=== PATIENT | female | born 1935 | race Caucasian/White ===

== ENCOUNTER → 2016-07-25 | Outpatient (CLI) | payer OTHER, MEDICARE | LOC: RAD 12:52 | DX: M47.892 Other spondylosis, cervical region (principal); M47.894 Other spondylosis, thoracic region ==

== ENCOUNTER 2018-01-18 11:17 | Emergency (ER) | payer OTHER, MEDICARE ==
[~2018-01-18] VITALS: Ht 152.4 cm; Wt 43.1 kg
--- NOTE | ~2018-01-18 | EKG ---
[address] [address] ELECTROCARDIOGRAM REPORT Name: VIV ARMANDO Room #: DEP IRENE Anderson#: [id number] Admission: 01/18/18 Attend Phys: Discharge: 01/18/18 Date of : 33 Report #: [id number] THIS REPORT FOR: //name// [facility] ED Test Date: 2018-01-18 Test Time: 13:32:42 Pat Name: VIV ARMANDO Department: Room: Gender: F [facility] Nurse: WG : 1935 Requested By: Razia Bucio Order Number: [id number] MD: Oren Guidry Measurements Intervals [place] Rate: 86 P: 79 [place]: 165 QRS: -1 QRSD: 73 T: 74 QT: 377 QTc: 451 Interpretive Statements Sinus rhythm Compared to ECG 09/11/1997 14:27:00 No significant changes Electronically Signed On 01-20-2018 20:24:24 ENTRY MANAGER by Oren Guidry [email or web address] <ELECTRONICALLY SIGNED> By: Oren Guidry MD 01/20/182023 1332 1332 MD RICKY Venegas
[2018-01-18 11:39] LABS: ABSOLUTE NEUTROPHILS 8.1 thou/uL (1.4-8.2); BASOPHILS 0.5 % (0.0-2.0); EOSINOPHILS 0.4 % (0.0-3.0); HEMATOCRIT 41.9 % (37.0-47.0); HEMOGLOBIN 13.8 gm/dL (12.0-15.0); LYMPHOCYTES 13.3 % (24.0-44.0); MCH 29.9 pg (26.0-34.0); MCHC 32.9 g/dL (28.0-37.0); MONOCYTES 7.6 % (1.0-8.0); PLATELET COUNT 225 thou/uL (150-400); POLYS 78.2 % (36.0-66.0); RBC 4.61 mil/uL (4.20-5.00); RDW 13.9 % (10.5-14.5); WBC 10.3 thou/uL (4.0-11.0)
[2018-01-18 11:47] LABS: ANION GAP 8 mmol/L (7-16); BUN 21 mg/dL (7-18); CHLORIDE 105 mmol/L (98-107); CO2 26 mmol/L (21-32); CREATININE 1.3 mg/dL (0.6-1.0); GLUCOSE 130 mg/dL (74-106); SODIUM 139 mmol/L (136-145)
[2018-01-18] MEDS ORDERED: NORVASC5 MG PO (11:47)
[2018-01-18 11:49] LABS: POTASSIUM 4.7 mmol/L (3.5-5.1)
[2018-01-18] MEDS ORDERED: LEXAPRO 10 MG T10 M2 PO (11:49)
[2018-01-18] MEDS ORDERED: ASPIR 8181 MG PO (11:49)
[2018-01-18] MEDS ORDERED: CALCIUM 600 +1 EAC1 PO (11:50)
[2018-01-18] MEDS ORDERED: FOSAMAX 70 MG T70 MG PO (11:50)
[2018-01-18] MEDS ORDERED: ALEVE PM CAPLE1 EACH PO (11:52)
[2018-01-18 11:56] LABS: ALBUMIN 4.1 g/dL (3.4-5.0); SGOT 27 U/L (15-37); SGPT 18 U/L (30-65); TOTAL BILIRUBIN 0.7 mg/dL (<0.1-1.0); TOTAL PROTEIN 7.4 g/dL (6.4-8.2); TROPONIN-I <0.06 ng/mL (<0.06)
[2018-01-18 13:24] LABS: URINE BILIRUBIN NEGATIVE (Negative); URINE BLOOD NEGATIVE (Negative); URINE CLARITY CLEAR; URINE COLOR YELLOW; URINE GLUCOSE-RANDOM* NEGATIVE (Negative); URINE KETONES NEGATIVE (Negative); URINE LEUKOCYTES-REFLEX NEGATIVE (Negative); URINE NITRITE-REFLEX NEGATIVE (Negative); URINE PROTEIN (DIPSTICK) NEGATIVE (Negative); URINE SPECIFIC GRAVITY 1.015 (1.005-1.035)
[2018-01-18 13:40] LABS: AMP/METHAMP Negative (Negative); BARBITURATES Negative (Negative); BENZODIAZEPINES Negative (Negative); COCAINE Negative (Negative); METHADONE Negative (Negative); OPIATES Negative (Negative); PCP Negative (Negative)
[2018-01-18 14:48] VITALS: BP 118/61
== END 2018-01-18 15:43 | disposition home or self-care (01) ==
LOC: ER 11:17
PROVIDERS: Student in an Organized Health Care Education/Training Program
DX: E86.0 Dehydration (principal); R11.0 Nausea; Z88.2 Allergy status to sulfonamides

== ENCOUNTER 2018-07-03 11:39 | Emergency (ER) | payer OTHER, MEDICARE ==
[~2018-07-03] VITALS: Ht 152.4 cm; Wt 45.8 kg
[~2018-07-03 11:39] MED LIST: ALEVE PM CAPLE1 EACH PO; AMOXICILLIN 50500 MG PO; ASPIR 8181 MG PO; CALCIUM 600 +1 EAC1 PO; FOSAMAX 70 MG T70 MG PO; LEXAPRO 10 MG T10 M2 PO; NORVASC5 MG PO; PREDNISONE 5 MG5 M1 PO
[2018-07-03 12:37] LABS: BASOPHILS 0.8 % (0.0-2.0); EOSINOPHILS 0.5 % (0.0-3.0); HEMOGLOBIN 12.3 gm/dL (12.0-15.0); LYMPHOCYTES 15.2 % (24.0-44.0); MCH 29.9 pg (26.0-34.0); MCHC 33.2 g/dL (28.0-37.0); MCV 90.1 fL (80.0-100.0); MONOCYTES 8.9 % (1.0-8.0); PLATELET COUNT 215 thou/uL (150-400); POLYS 74.6 % (36.0-66.0); WBC 9.4 thou/uL (4.0-11.0)
[2018-07-03 12:41] LABS: ANION GAP 9 mmol/L (7-16); BUN 23 mg/dL (7-18); CALCIUM 8.6 mg/dL (8.5-10.1); CHLORIDE 104 mmol/L (98-107); CO2 27 mmol/L (21-32); GLUCOSE 141 mg/dL (74-106); SODIUM 140 mmol/L (136-145)
[2018-07-03 12:51] LABS: DIRECT BILIRUBIN 0.1 mg/dL (<0.1-0.3); SGOT 18 U/L (15-37); SGPT 17 U/L (30-65); TOTAL BILIRUBIN 0.6 mg/dL (<0.1-1.0); TOTAL PROTEIN 6.5 g/dL (6.4-8.2); TROPONIN-I <0.06 ng/mL (<0.06)
[2018-07-03] MEDS ORDERED: XANAX 0.25 MG0.25 MG PO (13:47)
[2018-07-03 15:20] VITALS: BP 140/53
--- NOTE | 2018-07-04 16:08 | EKG ---
[address] [address] [facility] [place] [address] ELECTROCARDIOGRAM REPORT Name: VIV ARMANDO Room #: DEP IRENE Anderson#: [id number] ������������������ Admission: 07/03/18 ������������������ Attend Phys: Discharge: 07/03/18 ������������������ Date of : 33 Report #: [id number] ����������������������������������������������������������������� [id number] THIS REPORT FOR: //name// [facility] ED Test Date: 2018-07-03 Test Time: 13:00:23 Pat Name: VIV ARMANDO Department: Room: Gender: F Press Secretary: TSTORCK : 1935 Requested By: Nisreen Pedroza Order Number: [id number] MD: Alexis Alvarez Measurements Intervals [place] Rate: 68 P: 83 [place]: 147 QRS: 59 QRSD: 73 T: 75 QT: 417 QTc: 444 Interpretive Statements Sinus rhythm Compared to ECG 01/18/2018 13:32:42 No significant changes Electronically Signed On 07-04-2018 16:08:31 CDT by Alexis Alvarez [email or web address] ��������������������������������������������� <ELECTRONICALLY SIGNED> ���������������������������������������� By: Alexis Alvarez MD ��������������������������������������������� 07/04/18 1608 1300 1300 Alexis Alvarez MD /EPI
== END 2018-07-03 15:20 | disposition home or self-care (01) ==
LOC: ER 11:39
PROVIDERS: Emergency Medicine
DX: I95.1 Orthostatic hypotension (principal); Z88.2 Allergy status to sulfonamides

== ENCOUNTER 2019-03-20 10:00 | Emergency (ER) | payer OTHER, MEDICARE ==
[~2019-03-20] VITALS: Ht 157.5 cm; Wt 36.3 kg
--- NOTE | ~2019-03-20 | EKG ---
[facility] [place] [address] ELECTROCARDIOGRAM REPORT Name: VIV ARMANDO Room #: PRE M.R.#: [id number] Admission: Attend Phys: Discharge: Date of : 34 Report #: [id number] THIS REPORT FOR: cc: Dennis Sheikh MD, Thomas P. MD Epiphany, Epiphany MD ~ THIS REPORT FOR: //name// [facility] ED Test Date: 2019-03-20 Test Time: 10:04:43 Pat Name: VIV ARMANDO Department: Room: Gender: F Physics Tutor: ULI : 1935 Requested By: Bob Salazar Order Number: [id number] MD: Measurements Intervals [place] Rate: 82 P: 82 [place]: 142 QRS: 56 QRSD: 136 T: 65 QT: 397 QTc: 464 Interpretive Statements Sinus rhythm Nonspecific intraventricular conduction delay Anteroseptal infarct, age indeterminate Compared to ECG 07/03/2018 13:00:23 Intraventricular conduction delay now present Myocardial infarct finding now present [email or web address] By: 1004 1004 Epiphany EpiphanyMD /EPI
[~2019-03-20 10:00] MED LIST changes: +XANAX 0.25 MG0.25 MG PO
[2019-03-20 11:09] LABS: BASOPHILS 0.5 % (0.0-2.0); EOSINOPHILS 0.2 % (0.0-3.0); HEMATOCRIT 39.4 % (37.0-47.0); HEMOGLOBIN 12.8 gm/dL (12.0-15.0); LYMPHOCYTES 8.1 % (24.0-44.0); MCH 29.6 pg (26.0-34.0); MCHC 32.5 g/dL (28.0-37.0); MCV 91.3 fL (80.0-100.0); MONOCYTES 7.5 % (1.0-8.0); PLATELET COUNT 218 thou/uL (150-400); POLYS 83.7 % (36.0-66.0); RBC 4.32 mil/uL (4.20-5.00); RDW 14.3 % (10.5-14.5); WBC 10.8 thou/uL (4.0-11.0)
[2019-03-20 11:15] LABS: ANION GAP 9 mmol/L (7-16); BUN 24 mg/dL (7-18); CALCIUM 8.6 mg/dL (8.5-10.1); CHLORIDE 105 mmol/L (98-107); CO2 28 mmol/L (21-32); GLUCOSE 124 mg/dL (74-106); POTASSIUM 3.8 mmol/L (3.5-5.1); SODIUM 142 mmol/L (136-145)
[2019-03-20 11:25] LABS: ALBUMIN 4.1 g/dL (3.4-5.0); DIRECT BILIRUBIN 0.1 mg/dL (<0.1-0.2); SGOT 34 U/L (15-37); SGPT 33 U/L (30-65); TOTAL BILIRUBIN 0.6 mg/dL (<0.1-1.0); TOTAL PROTEIN 7.2 g/dL (6.4-8.2); TROPONIN-I <0.06 ng/mL (<0.06)
[2019-03-20 12:51] LABS: URINE BILIRUBIN NEGATIVE (Negative); URINE BLOOD TRACE (Negative); URINE CLARITY CLEAR; URINE COLOR YELLOW; URINE GLUCOSE-RANDOM* NEGATIVE (Negative); URINE KETONES TRACE (Negative); URINE LEUKOCYTES-REFLEX NEGATIVE (Negative); URINE NITRITE-REFLEX NEGATIVE (Negative); URINE PROTEIN (DIPSTICK) TRACE (Negative)
[2019-03-20 14:23] VITALS: BP 144/56
== END 2019-03-20 14:25 | disposition home or self-care (01) ==
LOC: ER 10:00
PROVIDERS: Emergency Medicine
DX: S50.02XA Contusion of left elbow, initial encounter (principal); S50.01XA Contusion of right elbow, initial encounter; R53.1 Weakness; R41.0 Disorientation, unspecified; Z88.2 Allergy status to sulfonamides; W18.39XA Other fall on same level, initial encounter; Y93.89 Activity, other specified; Y92.89 Other specified places as the place of occurrence of the external cause; Y99.8 Other external cause status

== ENCOUNTER 2019-03-29 12:38 | Inpatient (IN) | payer OTHER, MEDICARE ==
[~2019-03-29] VITALS: Ht 160 cm; Wt 45.4 kg
--- NOTE | ~2019-03-29 | HC ---
[facility] [place] [address] CONSULTATION Name: VIV ARMANDO Room #: 454-P [facility] IN M.R.#: [id number] Admission: 03/29/19 Attend Phys: Roshan Langley MD Discharge: Date of : 34 Report #: [id number] THIS REPORT FOR: cc: Dennis Sheikh MD, Thomas P. MD Smithson, David G. MD ~ CC: Roshan Bahijalyn Canseco Dennis Sheikh DATE OF SERVICE: 03/31/2019 HISTORY OF PRESENT ILLNESS: The patient is an 83-year-old white female who was admitted with increasing falls at home. Noted to have approximately 7 falls. She does have a history of some dementia and had been placed on Namenda as an outpatient as well as some Xanax to help with her anxiety. She does live in her own home, but over the last couple of weeks her daughter has been staying with her. She has been having worsening gait instability with balance and falls and has now been admitted for further evaluation. MRI did not show any acute infarct. She has a diagnosis of gait apraxia with recurrent falls with Neurology involved. They also note abasia. We are seeing her in rehabilitation medicine consultation. PAST MEDICAL HISTORY: Includes COPD. She has had prior back surgeries, history of hypertension. MEDICATIONS: Please see the full medication listing. HABITS: Noted to be tobacco user, current same day smoker. No history of alcohol abuse. ALLERGIES: SULFA. SOCIAL HISTORY: As noted above. She does have the house with 7+7 steps in, has a roller walker. REVIEW OF SYSTEMS: No current complaints of chest pain, shortness of breath or abdominal discomfort. PHYSICAL EXAMINATION: GENERAL: An 83-year-old small statured, thin, white female, in no obvious distress. VITAL SIGNS: Last recorded temperature 98.2, pulse 83, respirations 18, blood pressure 160/65. The patient is alert. HEENT: Appeared to be benign. NEUROLOGIC: Cranial nerves are grossly intact. Facies are symmetric. She [address] [address] CONSULTATION Name: VIV ARMANDO Room #: 454-P [facility] IN M.R.#: [id number] Admission: 03/29/19 Attend Phys: Roshan Langley MD Discharge: Date of : 34 Report #: [id number] follows basic 1 step commands without difficulty. Tends to defer further answers to her son. Facies were symmetric. EXTREMITIES: Functional range of motion of both upper extremities. Strength is probably a grade 4-/5. Lower extremities functional range of motion, strength is grade 4-/5. Noted to need moderate assistance for toilet transfers. ASSESSMENT: An 83-year-old white female with the following problems: 1. Gait apraxia with recurrent falls. 2. Premorbid dementia. 3. Mild prerenal. 4. Generalized anxiety disorder. 5. Tobacco use with likely chronic obstructive pulmonary disease. PLAN: Therapy evaluations are underway. Discussion with the son. He notes that he and his sister are aware that the patient will warrant 24-hour care. Discussion is whether to have the patient return back to the home setting or to have the patient go home with her daughter. Therapy evaluations are underway and we will follow with you and see if she would warrant a short acute in-hospital inpatient rehabilitation stay. We will be glad to follow along with you. By: 1132 1320 Ti Del Valle MD /PMT
[2019-03-29 12:40] VITALS: BP 145/48
[2019-03-29] MEDS ORDERED: NAMENDA XR1 EACH PO (12:44)
[2019-03-29 13:03] LABS: ABSOLUTE NEUTROPHILS 10.2 thou/uL (1.4-8.2); BASOPHILS 0.6 % (0.0-2.0); EOSINOPHILS 0.3 % (0.0-3.0); HEMATOCRIT 40.9 % (37.0-47.0); HEMOGLOBIN 13.4 gm/dL (12.0-15.0); LYMPHOCYTES 7.4 % (24.0-44.0); MCH 29.7 pg (26.0-34.0); MCHC 32.7 g/dL (28.0-37.0); MCV 90.7 fL (80.0-100.0); PLATELET COUNT 227 thou/uL (150-400); POLYS 84.7 % (36.0-66.0); RBC 4.51 mil/uL (4.20-5.00); RDW 14.2 % (10.5-14.5)
[2019-03-29 13:10] LABS: URINE BILIRUBIN NEGATIVE (Negative); URINE BLOOD NEGATIVE (Negative); URINE CLARITY CLEAR; URINE COLOR YELLOW; URINE GLUCOSE-RANDOM* NEGATIVE (Negative); URINE KETONES NEGATIVE (Negative); URINE LEUKOCYTES-REFLEX NEGATIVE (Negative); URINE NITRITE-REFLEX NEGATIVE (Negative); URINE PROTEIN (DIPSTICK) TRACE (Negative); URINE SPECIFIC GRAVITY 1.025 (1.005-1.035)
[2019-03-29 13:13] LABS: ANION GAP 6 mmol/L (7-16); BUN 24 mg/dL (7-18); CHLORIDE 104 mmol/L (98-107); CO2 30 mmol/L (21-32); CREATININE 0.9 mg/dL (0.6-1.0); GLUCOSE 108 mg/dL (74-106); POTASSIUM 4.7 mmol/L (3.5-5.1); SODIUM 140 mmol/L (136-145)
[2019-03-29 13:18] LABS: BE(vivo) -3.6 mmol/L (-2 to +3); HCO3 21.1 mmol/L (22.0-26.0); PCO2 VENOUS 37.1 mmHg (41.0-51.0)
[2019-03-29 13:23] LABS: ALBUMIN 4.1 g/dL (3.4-5.0); LIPASE 186 U/L (73-393); SGOT 32 U/L (15-37); SGPT 32 U/L (30-65); TOTAL BILIRUBIN 0.5 mg/dL (<0.1-1.0); TOTAL PROTEIN 7.6 g/dL (6.4-8.2); TROPONIN-I <0.06 ng/mL (<0.06)
--- NOTE | 2019-03-29 13:45 | EKG ---
[facility] [place] [address] ELECTROCARDIOGRAM REPORT Name: VIV ARMANDO Room #: PRE M.R.#: [id number] Admission: Attend Phys: Discharge: Date of : 34 Report #: [id number] THIS REPORT FOR: cc: Dennis Sheikh MD, Thomas P. MD Couchonnal, Luis F. MD ~ THIS REPORT FOR: //name// [facility] ED Test Date: 2019-03-29 Test Time: 13:03:02 Pat Name: VIV ARMANDO Department: Room: Gender: F Road Machine Runner: [facility] : 1935 Requested By: Edwin Garcia Order Number: [id number] MD: Oren Guidry Measurements Intervals [place] Rate: 81 P: 78 [place]: 139 QRS: 29 QRSD: 119 T: 57 QT: 391 QTc: 454 Interpretive Statements Sinus rhythm Nonspecific intraventricular conduction delay Compared to ECG 03/20/2019 10:04:43 Electronically Signed On 03-29-2019 13:44:08 SYSTEMS QA ANALYST by Oren Guidry [email or web address] <ELECTRONICALLY SIGNED> By: Oren Guidry MD 03/29/19 1344 1303 1303 MD RICKY Venegas
[2019-03-29 14:44] VITALS: BP 156/66
[2019-03-29 15:14] LABS: TSH 1.348 uIU/mL (0.358-3.740)
[2019-03-29 15:26] VITALS: BP 166/74
[2019-03-29 15:54] VITALS: BP 168/68
[2019-03-29 16:25] VITALS: BP 151/77
[2019-03-29 19:17] VITALS: BP 155/64
[2019-03-30 08:00] VITALS: BP 131/42
[2019-03-30 15:00] VITALS: BP 155/73
[2019-03-30 19:10] VITALS: BP 145/63
[2019-03-31 05:31] LABS: HEMATOCRIT 34.2 % (37.0-47.0); MCH 29.9 pg (26.0-34.0); MCHC 32.8 g/dL (28.0-37.0); MCV 91.1 fL (80.0-100.0); RBC 3.75 mil/uL (4.20-5.00); RDW 14.1 % (10.5-14.5); WBC 9.1 thou/uL (4.0-11.0)
[2019-03-31 05:40] LABS: CALCIUM 8.5 mg/dL (8.5-10.1); CREATININE 0.9 mg/dL (0.6-1.0); MAGNESIUM 2.2 mg/dL (1.8-2.4); POTASSIUM 4.2 mmol/L (3.5-5.1)
[2019-03-31 05:56] LABS: HEMOGLOBIN 11.2 gm/dL (12.0-15.0)
[2019-03-31 07:20] VITALS: BP 160/65
[2019-03-31] MEDS ORDERED: NICOTINE TRANSD21 M1 TRANSDERM (14:19)
[2019-03-31] MEDS ORDERED: TYLENOL325 MG PO (14:19)
[2019-03-31] MEDS ORDERED: MIRALAX17 GM PO (14:19)
[2019-03-31] MEDS ORDERED: IPRAT-ALBUT 0.5-3 ML INH (14:19)
[2019-03-31] MEDS ORDERED: ENOXAPARIN40 MG/0.1 SUBQ (14:25)
[2019-04-01 18:08] LABS: SYPHILIS AB Non Reactive (Non Reactive)
[2019-04-02 11:08] LABS: ANA INTERPRETATION Negative (Negative)
== END 2019-03-31 16:59 | DRG 884 ==
LOC: ER 12:38 → 4W 14:53 → EROBS 14:53 → 4W 14:53
PROVIDERS: Emergency Medicine; Psychiatry & Neurology Neurology; ADMIT Internal Medicine
DX: F03.90 Unspecified dementia, unspecified severity, without behavioral disturbance, psychotic disturbance, mood disturbance, and anxiety (principal); F44.4 Conversion disorder with motor symptom or deficit; J44.9 Chronic obstructive pulmonary disease, unspecified; I10 Essential (primary) hypertension; Z60.2 Problems related to living alone; R29.6 Repeated falls; F41.1 Generalized anxiety disorder; F17.210 Nicotine dependence, cigarettes, uncomplicated; Z66 Do not resuscitate; R32 Unspecified urinary incontinence; G47.00 Insomnia, unspecified; Z79.899 Other long term (current) drug therapy; Z79.82 Long term (current) use of aspirin; Z88.2 Allergy status to sulfonamides; Z91.81 History of falling; Z71.6 Tobacco abuse counseling
CPT/HCPCS: 10040

== ENCOUNTER 2019-03-31 14:19 | Inpatient (IN) | payer OTHER, MEDICARE ==
[~2019-03-31] VITALS: Ht 160 cm; Wt 44.9 kg
[~2019-03-31 14:19] MED LIST changes: +IPRAT-ALBUT 0.5-3 ML INH; +MIRALAX17 GM PO; +NAMENDA XR1 EACH PO; +NICOTINE TRANSD21 M1 TRANSDERM; +TYLENOL325 MG PO
[2019-03-31] MEDS ORDERED: ENOXAPARIN40 MG/0.1 SUBQ (14:25)
--- NOTE | 2019-03-31 17:17 | NUR ---
ASSUMED CARE OF PT AT 1700 WHEN PT BROUGHT TO UNIT BY NURSE. REPORT RECEIVED FROM PREVIOUS NURSE PRIOR TO ADMISSION TO UNIT. MEDICATION LIST FAXED TO PHARMACY, ADMISSION CONSENTS SIGNED, ADMISSION VITAL SIGNS AND WEIGHT OBTAINED. ADMISSION ASSESSMENT COMPLETED. FAMILY AT BEDSIDE. DINNER PROVIDED TO PATIENT ON ADMISSION. FALL PRECAUTIONS IN PLACE. NURSING WILL CONTINUE TO MONITOR.
[2019-03-31 19:45] VITALS: BP 162/74
--- NOTE | 2019-04-01 02:15 | NUR ---
PT ASSESSMENT COMPLETED AND VSS. MEDS GIVEN ORDERED AND WELL TOLERATED. FALL PRECAUTIONS IN PLACE. UP TO THE BSC WITH MAX TWO ASST. VOIDING LARGE AMOUNT OF YELLOW URINE AND A LARGE FORMED DARK BROWN BM WHEN UP TO THE BSC. PT VERY IMPULSIVE AND FORGETS TO CALL. PLEASANTLY CONFUSED. SLEEPING WELL AT THIS TIME. PRN TYLENOL HELPFUL FOR C/O OF BACK PAIN. WILL CONTINUE TO MONITOR FREQUENTLY.
[2019-04-01 05:32] LABS: HEMOGLOBIN 10.8 gm/dL (12.0-15.0); MCHC 32.8 g/dL (28.0-37.0); MCV 91.3 fL (80.0-100.0); RBC 3.62 mil/uL (4.20-5.00); RDW 14.3 % (10.5-14.5); WBC 10.5 thou/uL (4.0-11.0)
[2019-04-01 05:52] LABS: CALCIUM 8.4 mg/dL (8.5-10.1); CREATININE 0.9 mg/dL (0.6-1.0); POTASSIUM 4.2 mmol/L (3.5-5.1)
--- NOTE | 2019-04-01 08:00 | NUR ---
PT NEEDING ASSISTANCE TO BATHROOM. PHYSICAL THERAPY ASSISTING ALSO. PT UP TO BSC VIA GAIT BELT. PT STATED SHE HAS SOME PAIN TO HER BACK OF 8 ON 1-10 SCALE. PT CLERK RATING EQUAL AND STRONG, PT ENCOURAGED NOT TO HOLD ONTO BSC WHEN TRANSFERING TO CHAIR WITH BED ALARM. PT HAS CALL LIGHT IN REACH. PT KNEW SHE WAS AT [facility] AND KNEW HER NAME AND DAY OF THE WEEK, SUNDAY.
[2019-04-01 08:30] VITALS: BP 132/70
--- NOTE | 2019-04-01 10:59 | NUR ---
ADM TYLENOL 325MG 2 TABS PO FOR PAIN TO BACK OF 8 ON 1-10 SCALE.
--- NOTE | 2019-04-01 11:47 | NUR ---
Nutrition: pt admitted with rehab unit with gait apraxia with recurrent falls. Consulted for "diet instruction". Pt on regular diet and reports good appetite, eats majority of meals and likes standard meals. BMI low 17.7 but weights very stable. 95-100#. Clavicle wasting observed however pt does not meet malnutrition criteria. Folate/Vitamin D WNL. Neuro consult to determine if worsening dementia or other. WIll offer ensure once daily. Low risk.
--- NOTE | 2019-04-01 12:00 | NUR ---
cm visit with pt, intro to cm, and dcp. pt stated " ok" with smile. chart review. daughter had been staying with [place], rt falls at home. pt lived in house with 14 steps up to main level. has fww and [facility] 3 ww. no private duty in past. son lives out town. no rehab "/chart and pt.
--- NOTE | 2019-04-01 18:15 | NUR ---
ADM TYLENOL 325MG 2 TABS FOR PAIN TO BACK OF 7 ON 1-10 SCALE.
[2019-04-01 19:19] VITALS: BP 146/65
--- NOTE | 2019-04-02 00:17 | NUR ---
PT ASSESSMENT COMPLETED AND VSS. MEDS GIVEN ORDERED AND WELL TOLERATED. FALL PRECAUTIONS IN PLACE. UP TO THE BSC WITH 2 ASST. PT IS VERY AFRAID OF FALLING WHICH MAKES HER MORE DIFFICULT TO TRANSFER. SLEEPING WELL AT THIS TIME. PLEASANTLY CONFUSED. WILL CONTINUE TO MONITOR FREQUENTLY. PT DENIES BACK PAIN AT THIS TIME.
[2019-04-02 08:30] VITALS: BP 152/80
--- NOTE | 2019-04-02 14:02 | NUR ---
Patient participated in community reintegration on 04/02/19 with ADELA Mason PT. Refer to documentation by ADELA Mason PT.
[2019-04-02 20:00] VITALS: BP 161/75
--- NOTE | 2019-04-02 20:02 | NUR ---
ASSUMED CARE AT 0700, PT A&O X 3, CONFUSED AND IMPULSIVE AT TIMES. VSS, O2 ON RA. PT GOT PRN TYLENOL FOR BACK PAIN WITH ADEQUATE RELIEF. MAX ASSIST X 1-2 TO BSC. CONTINENT OF B&B. IV TO LFA SALINE LOCKED , FLUSHES WELL. BED IN LOWEST POSITION, CALL LIGHT WITHIN REACH, WILL CONTINUE TO MONITOR PER POC.
--- NOTE | 2019-04-03 04:14 | NUR ---
ASSUMED CARE OF PATIENT AT 1900. UP TO CHAIR UNTIL READY FOR BED. VERY FEARFUL, AND ANXIOUS. ASSIST X2 TO BED. CALLS OUT TEARFULLY AT TIMES. NEEDS A LOT OF REASSURANCE. DENIES PAIN, SOA OR N/V. PROGRESSING SLOWLY TOWARDS POC GOALS.
[2019-04-03 08:00] VITALS: BP 142/61
[2019-04-03 20:00] VITALS: BP 118/61
--- NOTE | 2019-04-04 00:36 | NUR ---
PT ASSESSMENT DONE AND VSS. MEDS GIVEN AND WELL TOLERATED. FALL PRECAUTIONS IN PLACE. SLEEPING WELL. HOURLY ROUNDING. CALL LIGHT IN PLACE. WILL CONTINUE TO MONITOR.
--- NOTE | 2019-04-04 07:52 | HC ---
[facility] [place] [address] CONSULTATION Name: VIV ARMANDO Room #: 513-P ADM IN M.R.#: [id number] Admission: 03/31/19 Attend Phys: Ti Del Valle MD Discharge: Date of : 34 Report #: [id number] THIS REPORT FOR: cc: Dennis Sheikh MD, Thomas P. MD Deutch,Keegan Toney. PhD ~ CC: Ti Sheikh DATE OF SERVICE: 04/03/2019 NEUROBEHAVIORAL STATUS EXAMINATION AGE: 83. ATTENDING PHYSICIAN: Ti Del Valle MD INPATIENT CARE MANAGER RN: Keegan Estrella, PhD CLINICAL PRESENTATION: The patient is an 83-year-old female admitted to the rehabilitation unit at [facility] for comprehensive inpatient rehabilitation program to improve functional mobility, activities of daily living and self-care and mental status secondary to deficits from a fall at her home. The patient presented to the Emergency Room with deterioration in cognition after having repeated falls. Her daughter indicates she has fallen at least 5 times in the last week preceding her hospitalization. Prior to this admission, she had fallen twice at home and her daughter noticed a significant deterioration in her functioning. She had been unable to stand, walk, or utilize her utensils for eating. Patient also appeared more confused and disoriented. Her diagnosis on admission to the rehab unit is gait apraxia with recurrent falls, generalized anxiety disorder, premorbid dementia, tobacco abuse and underlying COPD. A complete description of her medical condition, history and medications can be found in her medical record. Neuropsychological consultation was requested to provide assistance in the assessment of cognitive and emotional status and to provide recommendations and services. Prior to this most recent admission, she was living independently in her own home. The patient has 4 children. One child, her daughter has been providing additional assistance in maintaining her independence. The patient is a high school graduate. 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 Prior history of treatment for depression is reported. TECHNIQUES UTILIZED: Clinical interview, review of medical records, staff consultation and behavioral observation, mini mental status exam [address] [address] CONSULTATION Name: VIV ARMANDO Room #: 513-P [facility] IN M.R.#: [id number] Admission: 03/31/19 Attend Phys: Ti Del Valle MD Discharge: Date of : 34 Report #: [id number] version, clock drawing and brief category fluency assessment, family interview-daughter. EXAMINATION FINDINGS: The patient was alert and cooperative with the assessment. She accurately described frequent falls as her reason for hospitalization. The patient indicates having hit her head at the time of the fall, however, inconsistencies are noted in the accuracy of her historical report. Severe deficits in memory, verbal fluency, planning and problem solving are noted. Increased anxiety, especially when attempting to walk is also described. Her appetite is reduced as she has been eating more sweets and less nutritious food. Reduced sensitivity to smell and taste are described. Her performance on the MMSE 2 brief version was extremely low with a raw score of 8 of 16. She was 3/3 for initial registration, 1/5 for orientation to time, 4/[address] and 0/3 for immediate recall of 3 items after a brief time delay and distraction. Performance on the MMSE 2 standard version was extremely low with a raw score 16 of 30. She was 0/5 for serial 7's, 2/2 for naming, 1/1 for repetition, 3/3 for auditory comprehension. She could read and follow a single command. She was able to write a sentence, but unable to copy a simple geometric design. The patient could not draw a clock or place numbers within the clock. The patient shows severe impairment in category fluency with animal fluency raw score of 5. There are multiple perseverative responses throughout the neurobehavioral status exam. Repetition was noted in her responses for general orientation along with category fluency. This type of presentation suggests a major neurocognitive disorder, likely due to Alzheimer disease. However, her deterioration in functioning following the falls, likely suggest a mild traumatic brain injury from the frequency of fall that preceded this admission. DIAGNOSTIC IMPRESSION: Major neurocognitive disorder (dementia), probably due to Alzheimer disease with an exacerbation from concussion, without behavior disorder -- extent to be determined, likely in the moderate to severe range. Unspecified anxiety disorder. RECOMMENDATIONS: The extent of her neurocognitive deficits will require her to have assistance in the management of medication, finances, and nutrition. The patient is unable to be left alone and so will require 24-hour care. Her daughter is very supportive and able to provide the care. The patient is responsive and cooperative when given directions. Reassurance along with encouraging the patient to engage in breathing exercises to manage anxiety will also be of benefit. Currently, walking and standing are creating a great deal [address] [address] CONSULTATION Name: VIV ARMANDO Room #: 513-P ADM IN M.R.#: [id number] Admission: 03/31/19 Attend Phys: Ti Del Valle MD Discharge: Date of : 34 Report #: [id number] of anxiety and the patient will likely require low endurance type of program. Consider eliminating the nicoderm patch. Thank you very much for allowing me to provide the consultation on this patient. <ELECTRONICALLY SIGNED> By: Keegan Estrella, PhD 04/04/19 0752 1811 2359 Keegan Estrella, PhD /nt
[2019-04-04 08:00] VITALS: BP 151/54
--- NOTE | 2019-04-04 13:32 | NUR ---
PT ALERT AND ORIENTED TIMES FOUR. VSS. PT DENIES PAIN/SOA. PT TOLERATES MEDS AND MEALS. PT WORKED WELL WITH PT/OT TODAY. PT UP SITTING IN HER WHELLCHAIR OF MOST OF THE DAY. PT PROGRESING HERMINIAS POC GOALS.
[2019-04-04 20:07] VITALS: BP 160/71
--- NOTE | 2019-04-05 04:55 | NUR ---
assumed care at approx 1900 evening 04/04. pt sitting up in w/c at change of shift. pt alert and oriented however forgetful and pleasantly confused at times. pt took hs meds with no problems. pt c/o not being able to sleep therefore order recd for melatonin. seemed to help pt sleep better and denied further complaints. bed alarm on and call light in reach. will continue to monitor.
[2019-04-05 08:00] VITALS: BP 148/63
--- NOTE | 2019-04-05 11:03 | NUR ---
PATIENT WAS IN BED WHEN CARE ASSUMED AT 0700. REQUESTED TO VOID, ASSISTED TO BSC TO VOID. PATIENT IS ALERT, FORGETFUL, VERY CONFUSED. PATIENT WAS UP IN DAY ROOM FOR BREAKFAST, APPETITE GOOD. PATIENT TOOK ALL MORNING MEDICATION WHOLE IN THE ROOM WITHOUT ANY DIFFICULTY. PATIENT IS EATING, AND DRINKING FLUID WELL. LCTA, RESP., EVEN, UNLABORED, NO SOA/CYANOSIS NOTED. BS+X4, ABD SOFT, NON-TENDER TO TOUCH. PATIENT DENIES HAVING PHYSICAL PAIN AT THIS TIME. PATIENT IS MAKING GOOD PREGRESS TOWARD PHYSICAL/OCUPATIONAL THERAPY. NO SIGN OF ACUTE DISTRESS NOTED AT THIS TIME, WILL MONITOR FOR SAFETY
[2019-04-05 21:00] VITALS: BP 116/48
--- NOTE | 2019-04-06 04:01 | NUR ---
assumed care at approx 1900 evening 04/05. pt lying in bed at change of shift sleeping soundly. pt awoke for hs meds taking with water tolerating well. pt went back to sleep and awoke to be assisted to bsc. pt appropriate and cooperative. pt appears to be sleeping soundly with hourly rounding checks. bed alarm on and call light in reach. will continue to monitor.
[2019-04-06 09:57] VITALS: BP 152/62
--- NOTE | 2019-04-06 18:17 | NUR ---
PT ALERT AND ORIENTED TIMES FOUR. VSS, PT C/O PAIN PRN PAIN MEDICATIONS GIVEN WITH GOOD RELEIF. PT WORKED WELL WITH PT TODAY. PT TOLERATES MEDS AND MEALS. PT FAMILY AT BEDSIDE THIS SHIFT. PT PROGRESSING TOWRDAS POC GOALS.
[2019-04-06 19:47] VITALS: BP 109/51
--- NOTE | 2019-04-06 23:49 | NUR ---
PT ASSESSMENT DONE AND VSS. MEDS GIVEN AND WELL TOLERATED. FALL PRECAUTIONS IN PLACE. SLEEPING WELL. OCCASIONAL PHLEGMY COUGH. HOURLY ROUNDING. CALL LIGHT IN REACH. WILL CONTINUE TO MONITOR.
[2019-04-07 09:00] VITALS: BP 151/82
--- NOTE | 2019-04-07 19:34 | NUR ---
ASSUMED CARE AT 0700, PT A&O X 3, CONFUSED AT TIMES AND IMPULSIVE. VSS O2 ON RA. PT C/0 BACK PAIN RELIEVED WITH PRN TYLENOL. PT USUALLY CONTINENT AND USES BSC. IMPROVEMENT NOTED ON PT USING CALL LIGHT. PT FAMILY VISITED, ALSO ATE MEALS IN DINING ROOM. IV TO LFA SALINE LOCK AND FLUSHES WELL. BED IN LOWEST POSITION, CALL LIGHT WITHIN REACH, WILL CONTINUE TO MONITOR PER POC.
[2019-04-07 20:20] VITALS: BP 167/64
--- NOTE | 2019-04-08 04:04 | NUR ---
CONTINENT OF URINE, UP TO BSC WITH GAIT BELT, WALKER, ASSIST OF ONE, AND VERBAL CUEING. HAS DIFFICULTY ANNOUNCING PLANS TO GET OUT OF BED.
[2019-04-08 08:00] VITALS: BP 159/81
[2019-04-08 09:06] VITALS: BP 159/81
--- NOTE | 2019-04-08 10:11 | NUR ---
Nutrition: At follow up no new labs. Meds reviewed. Intake 75% avg recent meals, nsg noted pt tolerating meals. Pt with low BMI, but no new wt since admit. Will keep at low nutirtion risk; recommend obtain/record current wt.
--- NOTE | 2019-04-08 14:07 | NUR ---
team meeting, recommendation: possible decrease the dose of nicotine patch and dc prior to dc. cont work on stair. 04/14/2019 hh ( pt, ot, nursing), will need 24hrs supervision and assistance with pills and bills. daughter will stay with her at dc, edcuation from therapy to have critical care physician assistant breaks at home to allow for rest. will cont following as needed for dc needs.
--- NOTE | 2019-04-08 15:13 | H ---
[facility] [place] [address] HISTORY AND PHYSICAL Name: VIV ARMANDO Room #: 513-P ADM IN M.R.#: [id number] Admission: 03/31/19 Attend Phys: Ti Del Valle MD Discharge: Date of : 33 Report #: [id number] THIS REPORT FOR: //name// CC: Ti Sheikh DATE OF SERVICE: 03/31/2019 POST-ADMISSION PHYSICIAN EVALUATION HISTORY OF PRESENT ILLNESS: The patient has been admitted now for acute in-hospital inpatient rehabilitation. Please see my consult note dictation from yesterday. See the documentation with the history and physical today. I agree with the documentation as noted including the history and physical. Past medical history, allergies, habits, social history. Agree with the examination findings as noted in the assessment and plan. The patient has had recurrent falls at home, was seen by Neurology, diagnosed with gait, apraxia and possible abasia with recurrent falls and has been admitted for acute in-hospital inpatient rehabilitation. She does have a prior history of some dementia, nevertheless living in the community. Premorbid front-wheeled walker or tripod walker ambulator. Her daughter has been recently staying with her. MEDICATIONS: Please see the full medication listing. REVIEW OF SYSTEMS: No current complaints of chest pain, shortness of breath or abdominal discomfort. Please see the full review of systems listing as documented. PHYSICAL EXAMINATION: GENERAL: She appeared appropriate. No distress. Vitals are as noted. HEAD, EYES, EARS, NOSE, AND THROAT: Appeared to be benign. CHEST: Sounded clear to auscultation. CARDIOVASCULAR: Regular rate and rhythm. ABDOMEN: Bowel sounds positive, nontender. GENITOURINARY AND RECTAL: Deferred. Normal inspection to the back. EXTREMITIES: She does have functional range of motion with some decreased end range of both upper extremities. She has degenerative changes. Strength is grade 4-/5. Lower extremities functional range of motion, strength is grade 4-/5. She is needing assistance with basic transfers and is at a min assist. NEUROLOGIC: As far as cognition she is alert and oriented to person and place. There is a definite latency to her responses. She is unsure regarding some of her past history details. ASSESSMENT: 1. Gait apraxia with recurrent falls. [address] [address] HISTORY AND PHYSICAL Name: VIV ARMANDO Room #: 513-P ADM IN M.R.#: [id number] Admission: 03/31/19 Attend Phys: Ti Del Valle MD Discharge: Date of : 33 Report #: [id number] 2. Generalized anxiety disorder. 3. Premorbid dementia. 4. Tobacco abuse. 5. Likely underlying COPD. PLAN: The patient has been admitted for acute in-hospital inpatient rehabilitation. From a postadmission physician evaluation perspective, there are no relevant changes since the preadmission screening. Please see the above review of prior and current medical and functional conditions and comorbidities. Please see the patient's previous and current functional status. As far as risk of complications, the patient has multiple medical comorbidities as noted above. Initial plan of care involves the interdisciplinary acute inpatient rehabilitation program. Measurable functional goals would be for the patient to become modified independent with transfers, mobility, ADLs or at least to return back to her prior functional status where she is no longer falling when up with the walker. Speech therapy will be working with her regarding cognition, communication, although will need to see if she is close to her baseline. Prognosis is reasonably good with estimated length of stay probably around 10 days to 2 weeks. Potential barriers would include her multiple medical comorbidities and decreased functional status. The patient meets diagnostic criteria for an acute in-hospital inpatient rehabilitation stay. She meets the medical necessity criteria and we will have the method consultant physicians continue to follow. She does have the tolerance for therapies and has appropriate discharge goals back to the home setting. <ELECTRONICALLY SIGNED> By: Ti Del Valle MD 04/08/19 1513 [id number] [id number] Ti Del Valle MD /[facility]
--- NOTE | 2019-04-08 15:13 | PLAN ---
[facility] [place] [address] REHAB UNIT PLAN OF CARE Name: VIV ARMANDO Room #: 513-P ADM IN M.R.#: [id number] Admission: 03/31/19 Attend Phys: Ti Del Valle MD Discharge: Date of : 33 Report #: [id number] THIS REPORT FOR: //name// CC: Ti Sheikh DATE OF SERVICE: 04/02/2019 PROGRESS NOTE/OVERALL PLAN OF CARE SUBJECTIVE: The patient was seen back today in followup. She is alert, pleasant, in no distress. Temperature 36.9, pulse 79, respirations 18, blood pressure 146/65. No calf swelling. Transfers are mod assist. She is ambulating 120 feet, min assist with a front-wheeled walker. We are working on balance issues. She does have moderate assistance needed for lower body dressing, supervision for upper body. She has moderate comprehensive deficits. ASSESSMENT: 1. Gait apraxia with recurrent falls. 2. Generalized anxiety disorder. 3. Premorbid dementia. 4. Tobacco abuse. 5. Likely underlying chronic obstructive pulmonary disease. PLAN: The overall plan of care is based on the preadmission screen, post-admission physician evaluation and information garnered from therapy assessments. 1. Estimated length of stay is probably 10 days to 2 weeks. 2. Medical prognosis is reasonably good. 3. Anticipated interventions includes the interdisciplinary acute inpatient rehabilitation program. 4. Anticipated functional outcomes would be for the patient to improve her strength, endurance, balance, gait independence and decreased propensity for falls, so we can have her return back home with family. 5. Discharge destination would be back to the home setting to live with her daughter or have the daughter lives with her. 6. Expected therapy by discipline includes PT and OT and speech, 1 hour per day each five days a week throughout the duration of the acute inpatient rehabilitation stay. <ELECTRONICALLY SIGNED> By: Ti Del Valle MD 04/08/19 1513 0925 1553 Ti Del Valle MD /[facility]
--- NOTE | 2019-04-08 16:17 | NUR ---
DISCHARGE PLANNING. DISCHARGE PLAN IS TO HOME WITH HOME HEALTH. ANTICIPATED DISCHARGE DATE 04/13. PATIENT HH REFERRAL FAXED TO [facility]. CALL PLACED TO [facility] TO NOTIFY. SPOKE WITH ANMOL, INTAKE LIAISON. ANMOL TO FACILITATE ONCE DISCHARGE/HOME HEALTH ORDERS RECEIVED.
[2019-04-08 19:20] VITALS: BP 163/60
--- NOTE | 2019-04-08 19:57 | NUR ---
ASSUMED PT CAREE AT 0700. VSS ON RA. PT ALERT AND ORIENTED TIMES FOUR. FORGETFUL, HAS DEMENTIA, PLEASANT CONFUSED. PT DENIES PAIN/SOA. PT TOLERATES MEDS WITH THIN WATER. C/O INDIGESTION, NOTIFIED JONAS AND OBTAIN PRN SIMETHECONE. GAVE MED. PT UP TO DINNING ROOM FOR MEALS. APPETITE GETING PT. PT WORKED WELL WITH PT/OT TODAY. CONTINUE B&B, DOESN'T USE CALL LIGHT. STAFF CHECK FREQUENTLY FOR NEEDS AND SAFETY AND OFFER TOILETING. PT URINATED 5X AND HAD ONE GOOD BM. PT UP SITTING IN HER WHELLCHAIR OF MOST OF THE DAY. OFFERED SUPPORTIVE CAER. PT PROGRESING TOWRADS POC GOALS. PT ABLE TO WALK WITH A WALKER WITH PHYSICAL THERAPIST ON THE BERNARD. FALL PRECAUTION IN PLACE. CALL LIGHT WITHIN REACH. HAS LAP BELT WHEN IN WC. DAUGHTER IS VERY SUPPORTIVE AND TOOK PT DOWN TO [place] THIS AFTERNOON. PT REALLY ENJOY IT. PT IS RESTING SOUNDLY IN BED AT THIS MOMENT. BED ALARM IS ON. GAVE REPORT TO NIGHT NURSE TO CONTINUE TO MONITOR.
--- NOTE | 2019-04-09 00:02 | NUR ---
PT ASSESSMENT DONE AND VSS. MEDS GIVEN AND WELL TOLERATED. FALL PRECAUTIONS IN PLACE. SLEEPING WELL. HOURLY ROUNDING. CALL LIGHT IN PLACE. WILL CONTINUE TO MONITOR.
[2019-04-09 04:12] LABS: CALCIUM 8.7 mg/dL (8.5-10.1); CREATININE 1.1 mg/dL (0.6-1.0); POTASSIUM 4.2 mmol/L (3.5-5.1)
[2019-04-09 04:49] LABS: ABSOLUTE NEUTROPHILS 5.1 thou/uL (1.4-8.2); BASOPHILS 0.9 % (0.0-2.0); EOSINOPHILS 0.9 % (0.0-3.0); HEMATOCRIT 30.9 % (37.0-47.0); HEMOGLOBIN 9.9 gm/dL (12.0-15.0); LYMPHOCYTES 17.5 % (24.0-44.0); MCH 29.6 pg (26.0-34.0); MCHC 32.1 g/dL (28.0-37.0); MCV 92.2 fL (80.0-100.0); MONOCYTES 10.5 % (1.0-8.0); PLATELET COUNT 231 thou/uL (150-400); POLYS 70.2 % (36.0-66.0); RBC 3.35 mil/uL (4.20-5.00); RDW 14.1 % (10.5-14.5); WBC 7.3 thou/uL (4.0-11.0)
[2019-04-09 08:00] VITALS: BP 128/64
--- NOTE | 2019-04-09 12:15 | NUR ---
ASSUMED CARE AT 0700. PATIENT IS CONFUSED WITH HX OF DEMENTIA. PATIENT DILL'S, PATIENT IS UP TO THE BATHROOM WITH ASSIST OF 1 STAFF AND GAIT BELT AND W/C. LUNGS ARE CLEAR. ABD IS SOFT WITH BSX4. PATIENT IS IMPULSIVE. UP IN THE W/C AND OUT TO THE DINING ROOM . FALL AND SAFETY PROTOCOLS IN PLACE. DENIES ANY PAIN AT THIS TIME. PATIENT HAS S.L. IN HER LEFT F.A. CONTINUES TO PROGRESS SLOWLY TOWARDS D/C GOALS. WILL CONTINUE TO MONITER.
[2019-04-09 19:32] VITALS: BP 122/41
--- NOTE | 2019-04-10 03:27 | NUR ---
UP TO BSC WITH MAX ASSIST OF 1 PLUS MUCH VERBAL CUEING, SEEMED TO WANT TO REPLACE BRIEFS PRIOR TO VOIDING, REMAINED WIDE AWAKE FOR 30 MINUTES THEN FELL BACK ASLEEP AT 0230.
--- NOTE | 2019-04-10 16:22 | NUR ---
PATIENT'S SON YARA IS PRESENT ON THE UNIT, AND HAS VOICED CONCERNS REGARDING THE FOLLOWING: FAMILY HAS NOT BEEN ABLE TO SPEAK TO A DOCTOR AT THE BEDSIDE, AND THEY HAVE MULTIPLE QUESTIONS. THEY ARE CONCERNED ABOUT HER BLOOD PRESSURES, HER DEMENTIA AND THAT THE ACTUAL DIAGNOSIS IS, AND THEY WOULD LIKE TO HAVE ALL OF THE INFORMATION AVAILABLE SO THEY ARE IN THE LOOP AND CAN ENSURE THAT NOTHING FALLS THROUGH THE CRACKS AT DISCHARGE. PT'S SON STATED THAT HE IS WORRIED BECAUSE HE IS GOING OUT OF TOWN NEXT WEEK BACK TO [place] WHERE HE LIVES, AND HE NEEDS TO BE SURE THAT HE IS DOING EVERYTHING HE CAN TO SUPPORT HIS SISTER SHE CARES FOR THEIR MOM.
--- NOTE | 2019-04-10 18:47 | NUR ---
PATIENT AMBULATED WITH THERAPIES. UP WITH STANDBY ASSIST USING WALKER. BECAME MORE FORGETFUL TOWARDS LATE AFTERNOON, PATIENT ABLE TO RE-DIRECT WELL BUT DOES NOT RETAIN ORIENTATION. FALL PRECAUTIONS IN PLACE. DENIES PAIN OR NEEDS AT THIS TIME.
[2019-04-10 20:00] VITALS: BP 139/67
--- NOTE | 2019-04-11 02:38 | NUR ---
PT ALERT AND ORIENTED X 2. UP TO BSC WITH ASSIST X 1 WITHOUT DIFFICULTY. IMPULSIVE AT TIMES. PT DENIES PAIN OR DISCOMFORT. BED ALARM ON FOR SAFETY. PT APPEARS TO BE SLEEPING ON HOURLY ROUNDS.
[2019-04-11 09:32] VITALS: BP 141/61
--- NOTE | 2019-04-11 17:20 | NUR ---
RECEIVED PT'S CARE AROUND 07; PT. ON BED RESTING WITH EYES CLOSED; EQUAL CHEST RISING NOTICED; DURING ASSESSMENT PT. ALERT TO PERSON & PLACE; NO C/O PAIN; EDUCATED ABOUT FALLING PREVENTIONS; ST. UNDERSTANDING; NEEDS TO BE REMAINED FROM TIME TO TIME; RELATIVES AT THE BED SIDE DURING THE AFTERNOON; PER ADRIANA REPORT PT. FEELING MORE COMFORTABLE AFTER TALKING WITH DR. GARCIA; ASSESSMENT CHARGED; FOLLOWING POC; WILL PASS ON REPORT;
[2019-04-11 20:15] VITALS: BP 169/72
--- NOTE | 2019-04-12 01:13 | NUR ---
PT ASSESSMENT COMPLETED AND VSS. MEDS GIVEN ORDERED AND WELL TOLERATED. PT VERY IMPULSIVE DURING THE NIGHT. PT THINKING IT IS TIME TO GET UP AND GET DRESSED. SHE HAS HER DAYS AND NIGHTS MIXED UP. ASST PT WITH REPOSITION AND ORIENTATION. PT ANXIOUS TO GO ON SUNDAY. SHE SAYS THAT SHE IS READY TO GO HOME. PT REMAINS VERY UNSTEADY AND UNSAFE. PROVIDED MUCH ASSISTANCE DURING THE NIGHT. WILL CONTINUE TO MONITOR FREQUENTLY.
[2019-04-12 08:00] VITALS: BP 150/76
--- NOTE | 2019-04-12 11:48 | NUR ---
ASSUMED CARE AT 0700. PATIENT IS ALERT AND ORIENTED TO SELF. DILL'S, ACCOUNTANT CLERK ARE EQUAL. LUNGS ARE CLEAR. ABD IS SOFT WITH BSX4. PATIENT HAD SMALL BM TODAY. CONTINUES TO PASS A LOT OF GAS. VOIDING DARIN COLORED URINE. FALL AND SAFETY PROTOCOLS IN PLACE. DENIES ANY PAIN AT THIS TIME. CONTINUES TO PROGRESS SLOWLY TOWARDS D/C GOALS. WILL CONTINUE TO MONITER.
--- NOTE | 2019-04-12 23:18 | NUR ---
PT ASSESSMENT COMPLETED AND VSS. MEDS GIVEN ORDERED AND WELL TOLERATED. FALL PRECAUTIONS IN PLACE. UP TO THE BSC WITH ASST. PT VERY IMPULSIVE. PT EXCITED ABOUT GOING HOME. SLEEPING WELL. WILL CONTINUE TO MONITOR FREQUENTLY.
--- NOTE | 2019-04-13 01:45 | NUR ---
PT CONTINUES TO BE VERY CONFUSED AT NIGHT. SHE KEEPS THINKING ITS TIME TO GET UP AND GET DRESSED AND PUT HER MAKEUP ON. WHEN GETTING UP TO THE BSC SHE IS VERY WEAK. SHE IS SCARED OF FALLING AND STIFFENS UP WHICH MAKES IT VERY HARD FOR ONE PERSON TO HELP HER. SHE REALLY NEEDS A TWO ASST.
[2019-04-13 08:00] VITALS: BP 141/77
--- NOTE | 2019-04-13 12:03 | NUR ---
PT CARE ASSUMED AT 0700. PT IS VERY FORGETFUL AND IMPULSIVE. DAUGHTER AND SON DAHLIA VISITED TODAY AND KEPT HER ENTERTAINED. PT ATE ALL MEALS IN THE DINING ROOM. TAKES PILLS WHOLE. VOIDS LARGE AMOUNTS OF URINE. WHEELCHAIR NEEDS VELCROW AT ALL TIMES FOR IMPULSIVENESS. PT WILL DISCHARGE TOMORROW HOME WITH DAUGHTER. FALL PROTOCOLL IN PLACE. CALL LIGHT IN REACH. WILL CONTINUE TO MONITOR.
[2019-04-13 20:06] VITALS: BP 132/57
--- NOTE | 2019-04-13 23:52 | NUR ---
PT ALERT AND ORIENTED X 1, MAX ASSIST X 1 TO BSC. PT GRABBING AT PILLOWS, SHEETS WHEN TRYING TO GET UP. VERY DIFFICULT TO TRANSFER. PT TAKES MEDS WHOLE WITH WATER WITHOUT DIFFICULTY. PT DENIES PAIN OR DISCOMFORT. BED ALARM ON FOR SAFETY. PT CHECKED ON HOURLY ROUNDS.
[2019-04-14 07:25] VITALS: BP 159/86
[2019-04-14 07:26] LABS: ABSOLUTE NEUTROPHILS 5.6 thou/uL (1.4-8.2); BASOPHILS 0.8 % (0.0-2.0); EOSINOPHILS 0.7 % (0.0-3.0); HEMATOCRIT 36.4 % (37.0-47.0); HEMOGLOBIN 11.8 gm/dL (12.0-15.0); LYMPHOCYTES 14.4 % (24.0-44.0); MCH 29.5 pg (26.0-34.0); MCHC 32.4 g/dL (28.0-37.0); MCV 91.1 fL (80.0-100.0); MONOCYTES 9.3 % (1.0-8.0); PLATELET COUNT 220 thou/uL (150-400); POLYS 74.8 % (36.0-66.0); RDW 14.1 % (10.5-14.5); WBC 7.5 thou/uL (4.0-11.0)
[2019-04-14 07:48] LABS: CALCIUM 9.4 mg/dL (8.5-10.1); MAGNESIUM 2.1 mg/dL (1.8-2.4); POTASSIUM 4.4 mmol/L (3.5-5.1)
[2019-04-14 09:48] VITALS: BP 159/86
[2019-04-14] MEDS ORDERED: DONEPEZIL HCL 55 MG PO (10:48)
[2019-04-14] MEDS ORDERED: ADULT LOW DOSE81 MG PO (10:49)
[2019-04-14] MEDS ORDERED: PROAIR HFA8.5 GM INH (10:50)
[2019-04-14 11:33] VITALS: BP 159/86
--- NOTE | 2019-04-14 13:05 | NUR ---
DISCHARGE HOME HEALTH ORDERS COMPLETED AND FAXED TO [facility]. CALL PLACED TO [facility] INTAKE. SPOKE WITH ANMOL, INTELLIGENCE RESEARCH SPECIALIST. ANMOL TO COORDINATE PATIENTS HH SERVICES.
[2019-04-14 15:47] VITALS: BP 159/86
--- NOTE | 2019-04-14 15:57 | NUR ---
PATIENT ALERT WITH CONFUSION WITH FAMILY AT BEDSIDE. PATIENT DC IN STABLE CONDITION TO HOME WITH SON AND DAUGHTER WITH DISCHARGE INSTRUCTIONS, ORDERS AND PRESCRIPTIONS AND HOME HEALTH ORDER. PATIENT HAD ALL PERSONAL BELONGINGS AND DISCHARGE VIA W/C TO PERSONAL VEHICLE.
== END 2019-04-14 12:15 | disposition home health service (06) | DRG 886 ==
PROVIDERS: Nurse Practitioner; ADMIT Physical Medicine & Rehabilitation
DX: R48.2 Apraxia (principal); G91.2 (Idiopathic) normal pressure hydrocephalus; N17.9 Acute kidney failure, unspecified; F41.1 Generalized anxiety disorder; F01.50 Vascular dementia, unspecified severity, without behavioral disturbance, psychotic disturbance, mood disturbance, and anxiety; J44.9 Chronic obstructive pulmonary disease, unspecified; I10 Essential (primary) hypertension; F17.210 Nicotine dependence, cigarettes, uncomplicated; R53.81 Other malaise; R29.6 Repeated falls; Z66 Do not resuscitate; G30.9 Alzheimer's disease, unspecified; F02.80 Dementia in other diseases classified elsewhere, unspecified severity, without behavioral disturbance, psychotic disturbance, mood disturbance, and anxiety; S06.0X0A Concussion without loss of consciousness, initial encounter; W18.39XA Other fall on same level, initial encounter; Y93.89 Activity, other specified; Y92.89 Other specified places as the place of occurrence of the external cause; Z88.2 Allergy status to sulfonamides; Z86.73 Personal history of transient ischemic attack (TIA), and cerebral infarction without residual deficits; Y99.8 Other external cause status
CPT/HCPCS: 10112

== ENCOUNTER 2020-03-11 08:49 | Inpatient (IN) | payer OTHER, MEDICARE ==
[~2020-03-11] VITALS: Ht 160 cm; Wt 46.9 kg
[~2020-03-11 08:49] MED LIST changes: +ADULT LOW DOSE81 MG PO; +DONEPEZIL HCL 55 MG PO; +ENOXAPARIN40 MG/0.1 SUBQ; +PROAIR HFA8.5 GM INH
[2020-03-11 08:50] VITALS: BP 182/69
[2020-03-11 09:35] LABS: ABSOLUTE NEUTROPHILS 12.4 thou/uL (1.4-8.2); BASOPHILS 0.4 % (0.0-2.0); EOSINOPHILS 0.1 % (0.0-3.0); HEMATOCRIT 39.8 % (37.0-47.0); HEMOGLOBIN 13.1 gm/dL (12.0-15.0); LYMPHOCYTES 3.8 % (24.0-44.0); MCH 29.7 pg (26.0-34.0); MCHC 32.8 g/dL (28.0-37.0); MCV 90.7 fL (80.0-100.0); MONOCYTES 8.1 % (1.0-8.0); PLATELET COUNT 201 thou/uL (150-400); POLYS 87.6 % (36.0-66.0); RBC 4.39 mil/uL (4.20-5.00); RDW 14.3 % (10.5-14.5); WBC 14.2 thou/uL (4.0-11.0)
[2020-03-11] MEDS ORDERED: ARICEPT10 M1 PO (09:36)
[2020-03-11] MEDS ORDERED: NORVASC 2.5 MG2.5 M1 PO (09:37)
[2020-03-11] MEDS ORDERED: CIPRO250 M2 PO (09:37)
[2020-03-11] MEDS ORDERED: MEMANTINE HCL5 MG PO (09:37)
[2020-03-11] MEDS ORDERED: GABAPENTIN100 MG PO (09:38)
[2020-03-11 09:44] LABS: ANION GAP 8 mmol/L (7-16); BUN 21 mg/dL (7-18); CHLORIDE 103 mmol/L (98-107); CO2 29 mmol/L (21-32); GLUCOSE 106 mg/dL (74-106); POTASSIUM 3.9 mmol/L (3.5-5.1); SODIUM 140 mmol/L (136-145)
[2020-03-11 09:45] LABS: URINE BILIRUBIN NEGATIVE (Negative); URINE BLOOD 1+ (Negative); URINE CLARITY CLEAR; URINE COLOR YELLOW; URINE GLUCOSE-RANDOM* NEGATIVE (Negative); URINE KETONES NEGATIVE (Negative); URINE LEUKOCYTES-REFLEX NEGATIVE (Negative); URINE NITRITE-REFLEX NEGATIVE (Negative); URINE PROTEIN (DIPSTICK) TRACE (Negative); URINE UROBILINOGEN 0.2 E.U./dl (0.2-1.0)
[2020-03-11 09:54] LABS: ALBUMIN 4.1 g/dL (3.4-5.0); SGOT 39 U/L (15-37); SGPT 31 U/L (30-65); TOTAL BILIRUBIN 0.8 mg/dL (0.2-1.0); TOTAL PROTEIN 7.1 g/dL (6.4-8.2); TROPONIN-I <0.06 ng/mL (<0.06)
[2020-03-11 10:02] LABS: BACTERIA-REFLEX 1-9 Few /HPF (None Seen); CASTS None Seen /LPF (None Seen); CRYSTALS None Seen /LPF (None Seen); SQUAMOUS None Seen /LPF (0-3); URINE RBC 0-2 Rare /HPF (0-2); URINE WBC-REFLEX None Seen /HPF (0-5)
--- NOTE | 2020-03-11 13:51 | EKG ---
[address] [place] [address] ELECTROCARDIOGRAM REPORT Name: VIV ARMANDO Room #: 170-4 ADM IN M.R.#: [id number] Admission: 03/11/20 Attend Phys: Cody Cleary MD Discharge: Date of : 34 Report #: [id number] [facility] ED Test Date: 2020-03-11 Test Time: 09:25:51 Pat Name: VIV ARMANDO Department: Room: 170 Gender: F Shop Laborer: ping : 1935 Requested By: Robin Ron Order Number: [id number] MD: Leo Frey Measurements Intervals [place] Rate: 73 P: 87 DE: 131 QRS: 7 QRSD: 98 T: 62 QT: 442 QTc: 488 Interpretive Statements Sinus rhythm Atrial premature complex Minimal ST elevation, anterior leads Borderline prolonged QT interval Compared to ECG 03/29/2019 13:03:02 Atrial premature complex(es) now present ST (T wave) deviation now present Intraventricular conduction delay no longer present Electronically Signed On 03-11-2020 13:51:39 INFANT TEACHER by Leo Frey [email or web address] <ELECTRONICALLY SIGNED> By: Leo Frey MD, [facility] 03/11/20 1351 4 4 Leo Frey MD, [facility] /EPI
--- NOTE | 2020-03-11 14:21 | NUR ---
Asked to speak with patient daughter; Theodora Linton at [phone]. Discussed role of case management. Daughter expressed interest in more services and assisted living. Discussed how upon admission and evaluation by medical and therapy team a drug abuse social worker will be in touch with resources to include possible skilled to Assisted Living transitions. Daughter interested in [facility] and the surrounding [facility] area. CM will follow for discharge needs.
--- NOTE | 2020-03-11 14:36 | NUR ---
84-year-old female brought in by EMS for evaluation after being found laying on the ground next to her bed. The patient's family told EMS that they have a camera on the patient and noted that the saw her in bed last night around 930 and when they checked on her this morning she was laying on the ground with her hand up on the bed. The patients daughter reports PCP 1-week earlier had placed patient on Cipro for an "E-coli" UTI. Since beginning the Cipro patient's mental status has been altered per the daughter. The patient is being admitted for AMS. Upon medical assessment and therapy evaluation CM will follow for discharge needs.
[2020-03-11 16:50] VITALS: BP 140/95
--- NOTE | 2020-03-11 17:01 | NUR ---
TALKED WITH DR. RUFF REGARDING [facility], PROVIDERED ORDERED A 2ND ONE, CLARIFED IF THE WANTED ANOTHER LEVEL OR IF THIS WAS A DUPCLIATE ORDER. PROVIDER SAID THIS WAS A DUPLICATE
[2020-03-11 17:56] VITALS: BP 156/66
[2020-03-11 18:22] VITALS: BP 175/78
--- NOTE | 2020-03-11 18:35 | NUR ---
PATIENT ARRIVED TO UNIT AT APPROX. 1830. CALL LIGHT IN PLACE. WARM BLANKET PLACED ON PATIENT. EDUCATED ON CALLING FOR HELP, VSS, ORIENTED TO ROOM. PATIENT APPEARS CONFUSED; AWAITING PHONE CALL FFCHIO DTR. VOICES MILD PAIN IN NECK AREA D/T FALL AT HOME. FALL PREAUTIONS IN PLACE. WILL ENDORSE TO NOC. RM.
[2020-03-11 19:57] VITALS: BP 190/92
--- NOTE | 2020-03-12 04:06 | NUR ---
VSS-AFEBRILE. ORIENTED TO PERSON ONLY. IMPULSIVE BEHAVIOR, TRIED MULTIPLE TIMES TO CLIMB OVER BEDRAILS TO GET OUT OF BED. VERY DIFFICULT TO REORIENT AND EDUCATE ON FALL PRECAUTIONS. INCONTINENT OF URINE MULTIPLE TIMES, NO BM THIS SHIFT. FALL PRECAUTIONS IN PLACE.
[2020-03-12 04:52] LABS: ALBUMIN 3.2 g/dL (3.4-5.0); CALCIUM 8.7 mg/dL (8.5-10.1); CREATININE 0.8 mg/dL (0.6-1.0); POTASSIUM 3.8 mmol/L (3.5-5.1); TOTAL BILIRUBIN 0.6 mg/dL (0.2-1.0); TOTAL PROTEIN 5.4 g/dL (6.4-8.2)
[2020-03-12 07:30] VITALS: BP 150/57
[2020-03-12 10:39] VITALS: BP 150/57
--- NOTE | 2020-03-12 11:56 | NUR ---
PT ADMTITED RELATED TO AMS, WORSENING WEAKNESS, DEHYDRATION. CM REVIEWED CHART AND SPOKE WITH CARE TEAM. CM MET WITH PT AND DTR AT BEDSIDE THIS DAY. PT WAS ABLE TO PROVIDE ACCURATE INFO ABOUT PLOF AND LIVING SITUATION. PT RESIDES IN A HOUSE ALONE WITH 14 STEPS TO ENTER. PT HAD BEEN USING A FWW TO ASSIST WITH MOBILITY FAMILY CONSUMER SCIENCE FCS TEACHER. PT'S DTR STAYS WITH PT AND ONLY LEAVES TO RUN ERRANDS AT THIS TIME. PT HAD BEEN INDEPENDENT WITH TOILETING BUT NEEDED ASSIST/SUPERVISION WITH DRESSING AND TOILETING. PT HAD BEEN ON 5N IN MAR/APRIL OF 2019. DTR ASKED THAT PT BE AVALUATED FOR POSSIBLE ADMISSION TO 5N. THEY ARE TO ASSESS. CM PROVIDED SNF LIST IF 5N ISN'T APPROPRIATE BUT DTR DOESN'T WANT HER TO GO ANYWHERE WHERE SHE WOULDN'T BE ABLE TO SEE HER. CM TO FOLLOW INDICATED WITH DC PLANNING.
--- NOTE | 2020-03-12 13:50 | NUR ---
5n can't accept pt. Cm called and [facility] is allowing one visitor for duration of stay and [facility] allows visitor 8-12 or 4-8. Dtr asked that referral be sent to [facility]. She indicated she's not sure if she'll just bring pt home or is acute will be their choice. Referral sent to [facility]. Should pt be medically stable to nh over weekend contact james mueller , .
--- NOTE | 2020-03-12 14:22 | NUR ---
ASSUMED CARE OF PATIENT AT 0700. ASSESSMENT CHARTED. MEDS ADMINISTERED PER EMAR. VSS. PATIENT WAS VERY DROWSY THIS A.M. BUT "RETURNED TO BASELINE" PER HER DAUGHTER AFTER BREAKFAST. PATIENT STILL HAS SOME CONFUSION AND FORGETFULNESS BUT DOES NOT APPEAR TO BE HAVING HALLUCINATIONS. PATIENT DTR REPORTED TAKING ONLY 5MG OF ARICEPT AND MEMANTINE, NOT 10MG. PATIENT VOICES PAIN ON NECK AND BACK; PRN TYLENOL ADMINSTERED. TYLENOL NOT APPEARING TO HELP W PAIN; LIDOCAINE PATCH ORDERED PER MD. PATIENT WAS ASSESSED FOR 5N REHAB HERE IN HOUSE BUT WAS NOT ACCEPTED. CM WORKING ON MORE OPTIONS. PATIENT WORKED W PT/OT THIS DAY; IS UP x1-2 TO BSC, COULD BENEFIT FROM FURTHER PT WORK. FALL PRECAUTIONS IN PLACE. FAMILY AT BEDSIDE. PATIENT VOICES NO CONCERNS OTHER THAN PAIN. WILL CONTINUE TO MONITOR AND FOLLOW PLAN OF CARE.
--- NOTE | 2020-03-12 14:55 | NUR ---
FAXED REFERRAL TO [facility] RECEIVED CONFIRMATION AND LEFT MSG WITH FRANSISCO IN ADM.
[2020-03-12 19:25] VITALS: BP 186/70
--- NOTE | 2020-03-13 03:27 | NUR ---
VSS-AFEBRILE. CONFUSED AND RESTLESS OVERNIGHT WITH SPORADIC PERIODS OF SLEEP. C/O NECK PAIN, TRAMADOL PROVIDED PARTIAL RELIEF. INCONTINENT OF URINE MULTIPLE TIMES, NO BM THIS SHIFT. TURNED AND OFFERED ORAL HYDRATION EVERY TWO HOURS FOR COMFORT. APPLIED BREAM TO ABRASION ON BACK. FALL PRECAUTIONS IN PLACE, CAN BE IMPULSIVE AND TRY TO GET OUT OF BED UNASSISTED.
[2020-03-13 07:16] VITALS: BP 174/66
--- NOTE | 2020-03-13 12:42 | NUR ---
Assumed pt care this am, alert and oriented x 2 to 3 very forgetful. Gait is unstable, daughter at the bedside aand verbalizaed she is leaning towards going to a facility vs home with [facility].
[2020-03-13 15:51] VITALS: BP 151/66
[2020-03-13 20:49] VITALS: BP 175/61
--- NOTE | 2020-03-13 21:00 | NUR ---
Pt. resting quietly in the bed and is awake. She is pleasantly confused and offers no complaints. Bed alarm is on.
--- NOTE | 2020-03-13 23:16 | NUR ---
PT RESTING IN BED, PLEASANTLY CONFUSED. REMAINS INCONTINENT. BED ALARM ON.
[2020-03-14 07:32] VITALS: BP 128/75
[2020-03-14 15:36] VITALS: BP 161/81
--- NOTE | 2020-03-14 18:24 | NUR ---
Assumed pt care at 7am.Pt in bed sleeping on and off.Assessment completed.vss. Pt c/o neck and back pain. Am meds given with pain med and well tolerated. Assisted with tray setup at all meals.Fair appetite noted.Pt wet briefs often and pericare given and new one applied.Dtr here later this afternoon and updates given.Fall bundle in place.Will continue to monitor.
[2020-03-14 19:45] VITALS: BP 158/84
--- NOTE | 2020-03-15 02:47 | NUR ---
PT CARE ASSUMED WITH PT IN BED WATCTCHING TV.PT IS A/O X2.PT UP WITH X1 ASSIST.PT HAS TRAMADOL FOR PAIN MANAGEMENT PRN.PT APPEARED TO BE IN NO ACUTE DISTRESS.IV ACCESS ON RT AC SL.WILL CONTINUE TO MONITOR
[2020-03-15 04:25] VITALS: BP 190/82
[2020-03-15 08:40] VITALS: BP 161/79
[2020-03-15] MEDS ORDERED: REMERON 30 MG T30 M1 PO (09:36)
--- NOTE | 2020-03-15 10:52 | NUR ---
WOUND CONSULT; WOUND TO THE COCCYX/SACRUM S/S CONSISTANT WITH FRICTION. NO S/S OF INFECTION. THE PATIENT IS TEACHABLE AND THE DAUGHTER HELPS WELL. NO S/S OF INFECTION. THE PATIENTS ALBUNIN IS 3.2. RECOMMENDATIONS; -ZGUARD TO COCCYX/SACRUM BID/PRN -LOW AIRLOSS PUMP APPLIE TO THE BED ON AT ALL TIMES -PRAFO BOOTS ON AT ALL TIMES BILATERALLY. -TURN Q2H DISCUSSED WITH JIM
--- NOTE | 2020-03-15 12:19 | NUR ---
REFERRLS HAD BEEN SENT TO [facility] AND [facility] SUNDAY PT'S DTR INDICATED SHE WASN'T SURE ABOUT ACUTE REHAB VS. HOME WITH . OVER WEEEKEND PHYSICIAN SPOKE WITH PT'S DTR ABOUT HOSPICE. CM FOLLOWED UP WITH PT AND DTR AT BEDSIDE AND DISCUSSED OPTIONS FURTHER. DTR INDICATED THAT SHE WAS INTERESTED IN PT GOING TO [facility] THEN HOME WITH [facility] AND MAYBE EVENTIALLY THEIR HOSPICE SERVICES. CM SENT CLINICAL UPDATED TO [facility] AND SPOKE WITH LIASINATALIE CAVAZOS. HE INDICATED THAT THEY ARE ABLE TO ACCEPT AND THAT [place] IN ADMISSIONS WOULD BE REACHING OUT TO CM TO ARRANGE. CM NOTIFIED DTR AND SHE IS GETTING PERSONAL ITEMS TOGETHER FOR PT. ANTICPATE PT GOING TO [facility] THIS DAY.
--- NOTE | 2020-03-15 15:38 | NUR ---
Assumed pt care this am, vs stable. Confused at times, was awaken by daughter and brought pudding for the pt for lunch. Pt had become very angry stating "they gave me brocolli ice cream and i dont like it." , pt had put the pudding on the brocolli but does not remember and states staff has done this. 2x assists, had to be carried from chair to wheelchair. Report given to [facility] nurse, pt refused to get back on bed for wound pictures since dressing was already done earlier in the day prior to being transferred to recliner. Daughter at the bedside, when with pt when transport arrived and would follow pt to the rehab. POC followed wioth no signs of distress noted.
== END 2020-03-15 15:49 | DRG 683 ==
LOC: ER 08:49 → 4W 12:55 → EROBS 12:55 → 4W 17:56
PROVIDERS: Emergency Medicine; ADMIT Hospitalist; ATTEND Hospitalist
DX: N17.9 Acute kidney failure, unspecified (principal); N39.0 Urinary tract infection, site not specified; E86.0 Dehydration; J44.9 Chronic obstructive pulmonary disease, unspecified; I10 Essential (primary) hypertension; F17.210 Nicotine dependence, cigarettes, uncomplicated; H81.10 Benign paroxysmal vertigo, unspecified ear; Z66 Do not resuscitate; R53.81 Other malaise; R48.2 Apraxia; F41.9 Anxiety disorder, unspecified; F01.50 Vascular dementia, unspecified severity, without behavioral disturbance, psychotic disturbance, mood disturbance, and anxiety; Z88.2 Allergy status to sulfonamides; Z79.899 Other long term (current) drug therapy; Z79.51 Long term (current) use of inhaled steroids; Z82.49 Family history of ischemic heart disease and other diseases of the circulatory system; Z80.6 Family history of leukemia; Z91.81 History of falling
CPT/HCPCS: 10045

== ENCOUNTER 2020-09-14 12:22 | Inpatient (IN) | payer OTHER, MEDICARE ==
[~2020-09-14] VITALS: Ht 144.8 cm; Wt 48.1 kg
--- NOTE | ~2020-09-14 | EMS ---
[address] [address] EMS Patient Care Report Name: VIV ARMANDO Room #: 452-P ADM IN M.R.#: [id number] Admission: 09/14/20 Attend Phys: Bryan Rivas Discharge: Date of : 33 Report #: [id number] THIS REPORT FOR: //name// Report Transmitted: 09/15/2020 13:07 EMS Care Summary [place], [place]/[facility] Incident [id number] @ 09/14/2020 11:50 Incident Location [id number] [place] [address] 127 Patient VIV ARMANDO Female, 84 Years 1935 Patient Address [address] [place] [id number] Chief Complaint Syncope Disposition Transported No Lights/[place] Dispatch Reason Breathing Problem Transported To [facility] Narrative M42 arrived on scene to find the patient lying supine on the bed. Patient said she was out side when she had gotten lightheaded. Patient's daughter said the patient while she was sitting in her wheelchair had passed out for 10-30 seconds. Patient denied striking her head or any type of trauma. Patient's daughter said the patient has had several similar episodes before and normally it is because she is dehydrated. Patient denied feeling lightheaded, dizzy, short of breath, fever, or cough. En route to the hospital no changes in the patient condition occurred. M42 arrived on scene of the hospital and patient care was transferred to the RN. [address] [place] [address] EMS Patient Care Report Name: VIV ARMANDO Room #: 452-P ADM IN M.R.#: [id number] Admission: 09/14/20 Attend Phys: Bryan Rivas Discharge: Date of : 33 Report #: [id number] Initial Vitals @12:02P: 68,R: 16,BP: 109/62,Pain: 0/10,GCS: 15,Glucose: 143,SpO2: 93,Revised Trauma: 12, @12:15P: 73,R: 16,BP: 108/72,Pain: 0/10,GCS: 15,SpO2: 97,Revised Trauma: 12, Assessments @12:01MENTAL:No Abnormalities,SKIN:No Abnormalities,HEENT:Head/Face: No Abnormalities,Eyes: No Abnormalities,Neck/Airway: No Abnormalities,LUNG SOUNDS:General: No Abnormalities,Left Upper: No Abnormalities,Right Upper: No Abnormalities,Left Lower: No Abnormalities,Right Lower: No Abnormalities,ABDOMEN:General: No Abnormalities,Left Upper: No Abnormalities,Right Upper: No Abnormalities,Left Lower: No Abnormalities,Right Lower: No Abnormalities,PELVIS//GI:No Abnormalities,EXTREMITIES:Left Arm: No Abnormalities,Right Arm: No Abnormalities,Left Leg: No Abnormalities,Right Leg: No Abnormalities,PULSE:NEURO:No Abnormalities,@12:13MENTAL:No Abnormalities,SKIN:No Abnormalities,HEENT:Head/Face: No Abnormalities,Eyes: No Abnormalities,Neck/Airway: No Abnormalities,LUNG SOUNDS:General: No Abnormalities,Left Upper: No Abnormalities,Right Upper: No Abnormalities,Left Lower: No Abnormalities,Right Lower: No Abnormalities,ABDOMEN:General: No Abnormalities,Left Upper: No Abnormalities,Right Upper: No Abnormalities,Left Lower: No Abnormalities,Right Lower: No Abnormalities,PELVIS//GI:No Abnormalities,EXTREMITIES:Left Arm: No Abnormalities,Right Arm: No Abnormalities,Left Leg: No Abnormalities,Right Leg: No Abnormalities,PULSE:NEURO:No Abnormalities, Impression Syncope / Fainting Procedures @12:01ALS AssessmentResponse: UnchangedSucceeded Timeline 11:49,Call Received 11:49,Dispatch Notified 11:50,Dispatched 11:51,En Route 11:58,On Scene 12:01,At Patient 12:01,ALS Assessment,Response: UnchangedSucceeded, 12:02,BP: 109/62 M,PULSE: 68,RR: 16 R,SPO2: 93 Ox,ETCO2: ,B,PAIN: 0,GCS: 15, 12:12,Depart Scene 12:15,BP: 108/72 M,PULSE: 73,RR: 16 R,SPO2: 97 Ox,ETCO2: ,BG: ,PAIN: 0,GCS: 15, 12:18,At Destination 12:30,Call Closed [facility] [address] [place] [address] EMS Patient Care Report Name: VIV ARMANDO Room #: 452-P ADM IN M.R.#: [id number] Admission: 09/14/20 Attend Phys: Bryan Rivas Discharge: Date of : 33 Report #: [id number] Disclaimer v1.1 Copyright 202 [employer] This EMS Care Summary contains data elements from the applicable legal record (which may be displayed differently). It is designed to provide pertinent information for the following purposes: continuity of care, clinical quality, and state data reporting. The complete legal record is available to ED staff and administrators of the receiving hospital in [employer]'s Patient Tracker. All data is provided "as is."
[~2020-09-14 12:22] MED LIST changes: +ARICEPT10 M1 PO; +CIPRO250 M2 PO; +GABAPENTIN100 MG PO; +MEMANTINE HCL5 MG PO; +REMERON 30 MG T30 M1 PO
[2020-09-14 12:23] VITALS: BP 106/34; BP 112/53
[2020-09-14 12:40] LABS: ABSOLUTE NEUTROPHILS 6.7 thou/uL (1.4-8.2); BASOPHILS 0.4 % (0.0-2.0); EOSINOPHILS 0.3 % (0.0-3.0); HEMOGLOBIN 11.5 gm/dL (12.0-15.0); LYMPHOCYTES 11.4 % (24.0-44.0); MCH 31.1 pg (26.0-34.0); MCHC 33.7 g/dL (28.0-37.0); MCV 92.2 fL (80.0-100.0); MONOCYTES 9.3 % (1.0-8.0); PLATELET COUNT 186 thou/uL (150-400); POLYS 78.6 % (36.0-66.0); RBC 3.69 mil/uL (4.20-5.00); RDW 13.3 % (10.5-14.5); WBC 8.6 thou/uL (4.0-11.0)
[2020-09-14 12:48] LABS: ANION GAP 7 mmol/L (7-16); BUN 32 mg/dL (7-18); CALCIUM 8.7 mg/dL (8.5-10.1); CHLORIDE 102 mmol/L (98-107); CO2 27 mmol/L (21-32); CREATININE 1.5 mg/dL (0.6-1.0); GLUCOSE 150 mg/dL (74-106); SODIUM 136 mmol/L (136-145)
[2020-09-14 12:58] LABS: ALBUMIN 3.6 g/dL (3.4-5.0); MAGNESIUM 2.1 mg/dL (1.8-2.4); SGOT 17 U/L (15-37); SGPT 16 U/L (14-59); TOTAL BILIRUBIN 0.4 mg/dL (0.2-1.0); TOTAL PROTEIN 6.3 g/dL (6.4-8.2); TROPONIN-I <0.06 ng/mL (<0.06)
--- NOTE | 2020-09-14 13:09 | EKG ---
[address] [address] ELECTROCARDIOGRAM REPORT Name: VIV ARMANDO Room #: PRE M.R.#: [id number] Admission: Attend Phys: Discharge: Date of : 33 Report #: [id number] [facility] ED Test Date: 2020-09-14 Test Time: 12:38:01 Pat Name: VIV ARMANDO Department: Room: Gender: F Sock Ironer: DOTTY : 1935 Requested By: Robin Ron Order Number: [id number] MD: Leo Frey Measurements Intervals [place] Rate: 66 P: 68 CO: 159 QRS: 36 QRSD: 86 T: 63 QT: 416 QTc: 436 Interpretive Statements Sinus rhythm Compared to ECG 03/11/2020 09:25:51 Atrial premature complex(es) no longer present Electronically Signed On 09-14-2020 13:08:58 CDT by Leo Frey [email or web address] <ELECTRONICALLY SIGNED> By: Leo Frey MD, [facility] 09/14/20 1308 1238 1238 Leo Frey MD, [facility] /EPI
[2020-09-14 15:50] VITALS: BP 139/37
[2020-09-14 16:54] LABS: URINE BILIRUBIN NEGATIVE (Negative); URINE BLOOD NEGATIVE (Negative); URINE CLARITY CLEAR; URINE COLOR YELLOW; URINE GLUCOSE-RANDOM* NEGATIVE (Negative); URINE KETONES NEGATIVE (Negative); URINE LEUKOCYTES-REFLEX NEGATIVE (Negative); URINE NITRITE-REFLEX NEGATIVE (Negative); URINE PROTEIN (DIPSTICK) NEGATIVE (Negative)
[2020-09-14 17:16] VITALS: BP 127/49
[2020-09-14 17:44] VITALS: BP 146/62
[2020-09-14 19:44] VITALS: BP 145/62
[2020-09-15] VITALS (8 sets, daily range): BP systolic 136–168; BP diastolic 48–70
--- NOTE | 2020-09-15 03:12 | NUR ---
ASSUMED PT CARE 1900. PT IS ALERT AND ORIENTED TO SELF. PT KEEP TAKING NC OFF. PT HAD FREQUENT URINATION ON THIS SHIFT. PT WAS GETTING OUT OF BED [id number] WITHOUT ANY ASSISTANCE.PT DID NOT C/O ANY PAIN DURING URINATION AND NO BBOOD WAS IN THE URINE. PT WAS STILL NON-COMPLIANT WITH THE USE OF CALL LIGHT EVEN AFTER RE-EDUCATION. BED ON LOWEST LOCKED POSITION WITH BED ALARM ON WITH CALL LIGHT WITHIN REACH. WILL CONTINUE TO MONITOR.
[2020-09-15 03:24] LABS: ALBUMIN 3.5 g/dL (3.4-5.0); CALCIUM 8.4 mg/dL (8.5-10.1); CREATININE 1.1 mg/dL (0.6-1.0); PHOSPHORUS 3.6 mg/dL (2.5-4.9); POTASSIUM 3.9 mmol/L (3.5-5.1)
--- NOTE | 2020-09-15 10:49 | NUR ---
pT IS AWAKE AND ALERT TO SELF. HAS DEMENTIA EDUCATED ABOUT PRESSING THE RED BUTTON WHEN SHE NEEDS TO GET OOB FOR ANYTHING. DAUGHTER AT BEDSIDE WENT HOME AROUND 830 WHEN PT WENT DOWN FOR CHEST X-RAY. iV IN LEFT FA RUNNING D5NS AT 125/HR. PT OUT OF BED WITH PT USED GAITBELT AND WALKER AND TO WALK INSIDE ROOM. SHE DOES HAVE URINARY FREQUENCY. HER LAST BM WAS 09/13/20. BED IN LOW POSITION. fALL PRECAUTIONS IN PLACE. cALL LIGHT WITHIN REACH. nO S/S OF DISTRESS NOTED.
[2020-09-15] MEDS ORDERED: ACETAMINOPHEN325 MG PO (11:08)
[2020-09-15] MEDS ORDERED: CALMOSEPTINE O3.5 GM TOP (11:09)
[2020-09-15] MEDS ORDERED: NEURONTIN100 MG PO (11:10)
[2020-09-15] MEDS ORDERED: COLACE100 MG PO (11:11)
[2020-09-15] MEDS ORDERED: TRAMADOL 50 MG50 MG PO ×2 (11:11→11:13)
[2020-09-15] MEDS ORDERED: VITAMIN D325 MC3 PO (11:12)
[2020-09-15] MEDS ORDERED: ALEVE220 MG PO (11:13)
--- NOTE | 2020-09-15 13:45 | NUR ---
Case opened to follow for dc planning. Elevator Con[employer] visited with the pt at bedside and her dtr/dpoa Theodora via phone. Theodora is bringing the pt's w/c from [facility] today. The pt is alert and oriented to self. She was unaware that she was in the hospital or why. She was able to provide her dtrs name as her emergency contact. Pt's dtr Theodora is her dpoa and she can provided a copy if needed. [facility] staff member, Michelle, confirmed that the pt is normally a little forgetful but able to participate in conversation and able to get her self to the bathroom and dining room with the help of her Rw. She often sits in her wheelchair. They provide her medications and supervision as well as bathing support. The pt's dtr visits daily. The pt is being treated for dehydration/syncopal episode. She is being seen by therapy. Dtr with concern about her mental status/fall earlier today which has been passed onto the attending and the unit mngr. The pt was at [facility] in March this year and then moved into [facility]. Will see how she is doing in the am. Pt may benefit from HH referral ([facility] is on site) at [place]. Will follow.
--- NOTE | 2020-09-16 02:22 | NUR ---
ASSUMED CARE OF PT AT 1900. PT IS A/O X1 AND IS CONFUSED AND IMPULSIVE. IS UNABLE TO ANSWER OPEN ENDED QUESTIONS BUT IS ABLE TO ANSWER YES/NO QUESTIONS. ON ROOM AIR. SR ON THE MONITOR. INCONTINENT OF URINE BUT AT TIMES ASKS FOR THE BATHROOM. NO BM NOTED THIS SHIFT. DISPLAYED SIGNS OF PAIN TO RIGHT SIDE OF NECK WITH GRIMACE AND HOLDING THE NECK WITH MOVEMENT IN THE BED. SCHEDULED PAIN MEDICATION GIVEN. MEDICATIONS GIVEN PER APR. AT 2200 PROVIDED PRN SLEEP MEDICATION FOR DIFFICULTY SLEEPING. AT THIS TIME PT IS LYING IN HER BED WITH EYES CLOSED AND APPEARS TO BE SLEEPING. FALL PRECAUTIONS IN PLACE, CALL LIGHT IS WITHIN REACH. IN ROOM NEAR NURSES STATION WITH FREQUENT CHECKS. WILL CONTINUE TO MONITOR.
[2020-09-16 08:33] VITALS: BP 162/76
[2020-09-16 10:36] VITALS: BP 162/76
--- NOTE | 2020-09-16 10:52 | NUR ---
Pt very lethargic and combative. Alert to self. Did not want to take medication. Stated she wanted to kill herself. Stated her right side of neck hurt. Received ordered for a neck brace and a Psych consult. Pt remains incontinent. Bowel sound are present. Lungs sounds are diminished. Bed in low position and fall precautions in place. Call light is within reach. Will monitor until end of shift.
--- NOTE | 2020-09-16 14:40 | NUR ---
CARE TEAM INDICATED THAT THEY [facility] CONSULTED NEUROLOGY AND PSYC TO SEE PT. PT HAS A CT OF THE NECK SHE COMPLAINING OF PAIN AFTER A FALL. A SOFT COLLAR WAS ORDERED. AWAITING CONSULTS AND RECS. CM FOLLOWING REGARDING DC PLANNING.
[2020-09-16 15:09] VITALS: BP 119/71
[2020-09-16 16:21] VITALS: BP 119/71
--- NOTE | 2020-09-16 16:40 | NUR ---
Contacted Dr. Rivas let him know pt wants to be discharged today. Daughter is tired of waiting. She went down to car and got the wheelchair.
--- NOTE | 2020-09-17 12:12 | HC ---
[facility] [place] [address] CONSULTATION Name: VIV ARMANDO Room #: 452-P [facility] IN M.R.#: [id number] Admission: 09/14/20 Attend Phys: Bryan Rivas Discharge: 09/16/20 Date of : 33 Report #: [id number] THIS REPORT FOR: cc: Dennis Sheikh MD, Thomas P. MD Khosla, Parveen K. MD ~ DATE OF SERVICE: 09/16/2020 HISTORY OF PRESENT ILLNESS: This is an 84-year-old female patient who was evaluated by me for altered mental status. I got the history from the patient's daughter as the patient is confused. The patient's daughter says that she has longstanding history of dementia. Dementia becomes worse when she is in unfamiliar places. In fact, she wants this patient to be back to her detention as soon as possible. She says she has longstanding neck pain. She has also the body pain, that is no different and her weakness is no different than before. She was admitted here with an episode of syncope after she felt hot. She did not hit her head. As far as dementia is concerned, she does not know month or year, but she recognizes very close relatives like the daughter. REVIEW OF SYSTEMS: Indicate that she had significant dementia. She had workup in the past. I do not have access to workup. She does have difficulty with ambulation, but according to her, that is going on for several years. She has a history of anxiety and dehydration and orthostatic hypertension, unable to take care of herself. This was a relevant 14-point review of system. PAST MEDICAL HISTORY: Positive for dementia. FAMILY HISTORY: Unremarkable. SOCIAL HISTORY: She lives in a long term facility. PHYSICAL EXAMINATION: NEUROLOGIC: Indicates to me she is alert. She is responsive. She has a reasonable speech, but she cannot tell me what month and what day it is. Her memory is significantly impaired, that makes it difficult to carry out a full neurological examination, but the best I can tell, cranial nerve examinations appear unremarkable. She moves all 4 extremities. Reflexes look symmetrical. Plantars left, mute, but she did reasonably well with the position sense and she indicates she can appreciates touch on both sides. There is no meningeal sign. There is no carotid bruit. There is no thyroid mass. VITAL SIGNS: Blood pressure is 162/76, pulse is 74, temperature is 98.1. IMAGING: She did have a CT scan during this admission and CT did show atrophy, [facility] [address] [place] [address] CONSULTATION Name: VIV ARMANDO Room #: 452-P [facility] IN [facility].#: [id number] Admission: 09/14/20 Attend Phys: Bryan Rivas Discharge: 09/16/20 Date of : 33 Report #: [id number] but nothing acute. CT scan of the C-spine is pending. LABORATORY DATA: White count is 8.6. Her TSH and vitamin B12 was done in February and they were normal. IMPRESSION: 1. Advanced dementia. 2. This patient may have some other pathology. RECOMMENDATION: I discussed the situation with the daughter. I discussed with her the CT finding and we talked about MRI. She said MRI will be too hard on this patient and she does not want any MRI. In fact, she does not want any aggressive care and she wants the patient to be transferred back to the detention as soon as possible. I told her that she needs to talk to the hospitalist about that. There was some question of Parkinson's in this patient. I do not see any marked tremor or rigidity. Many of these patients do have some mild Parkinson disease at this stage. I talked to the patient's daughter about it. We talked about the medications available and the side effect and she does not want to try those medications, mainly because of the side effect and I think that is reasonable. Dr. Goetz will be emergency telecommunications dispatcher from [facility] for tomorrow, but the daughter is pretty insistent that she does not want further testing like MRI, and in fact like to go back to the detention depending upon the results of the CT spine. I discussed with her that has to be between her and the admitting doctor. Otherwise, if the patient is still there, Dr. Goetz will follow up tomorrow to see how she is doing, if anything else needs to be done. More than 50 minutes of time was spent taking care of this patient and majority was spent counseling and coordinating Thank you very much for this referral. <ELECTRONICALLY SIGNED> By: Tay Sainz MD 09/17/20 1212 [id number] Tay Sainz MD /nt
== END 2020-09-16 17:00 | disposition home health service (06) | DRG 682 ==
LOC: ER 12:22 → 4W 17:16
PROVIDERS: Emergency Medicine; ADMIT Hospitalist; ATTEND Hospitalist
DX: N17.0 Acute kidney failure with tubular necrosis (principal); J96.21 Acute and chronic respiratory failure with hypoxia; E86.0 Dehydration; J44.9 Chronic obstructive pulmonary disease, unspecified; I10 Essential (primary) hypertension; F03.90 Unspecified dementia, unspecified severity, without behavioral disturbance, psychotic disturbance, mood disturbance, and anxiety; I95.9 Hypotension, unspecified; R53.81 Other malaise; G47.00 Insomnia, unspecified; R63.4 Abnormal weight loss; E55.9 Vitamin D deficiency, unspecified; M19.90 Unspecified osteoarthritis, unspecified site; Z20.822 Contact with and (suspected) exposure to COVID-19; Z88.2 Allergy status to sulfonamides; Z68.22 Body mass index [BMI] 22.0-22.9, adult; Z79.899 Other long term (current) drug therapy
CPT/HCPCS: 10045